=== PATIENT | male | born 1960 | race Caucasian/White ===

== ENCOUNTER → 2017-02-05 | Day surgery (SDC) | payer BC ==
[~2017-02-05] MED LIST: Ketamine 500 mg/10 ML MDV ONE; Lactated Ringers 1,000 ML IV SCH; Lidocaine 1% 4 ML ONE; Lidocaine 1%/Sod Bicarbonate in NS 8.4% 1 ML Syringe PRN; Propofol 200 MG/20 ML SDV ONE; Sodium Chloride 0.9% 10 ML Syringe FLUSH PRN
--- NOTE | 2017-02-05 07:38 | PCM.PREANE ---
Preanesthetic Assessment - Anesthesia/Transfusion/Family Hx Anesthesia History: Prior Anesthesia Without Reaction Family History of Anesthesia Reaction: No - Review of Systems General: No Symptoms Pulmonary: No Symptoms Cardiovascular: No Symptoms Gastrointestinal: Abdominal Pain, Nausea Neurological: No Symptoms Other: Reports: None - Physical Assessment NPO Status Date: 02/04/17 NPO Status Time: 23:00 Pulse: 89 O2 Sat by Pulse Oximetry: 94 Respiratory Rate: 16 Blood Pressure: 134/78 Temperature: 98.1 C Weight: 157 kg ASA Class: 3 Mental Status: Alert & Oriented x3 Dentition: Reports: Normal Dentition Thyro-Mental Finger Breadths: 2 Mouth Opening Finger Breadths: 3 ROM/Head Extension: Full Lungs: Clear to Auscultation, Normal Respiratory Effort Cardiovascular: Regular Rate, Regular Rhythm - Allergies Allergies/Adverse Reactions: Allergies Allergy/AdvReac Type Severity Reaction Status Date / Time Ylqynlq-Awj-Tka Reductase Allergy intolerance Verified 02/04/17 16:01 Inhibitor to - Acknowledgements Anesthesia Type Planned: MAC Pt an Appropriate Candidate for the Planned Anesthesia: Yes Alternatives and Risks of Anesthesia Discussed w Pt/Guardian: Yes Pt/Guardian Understands and Agrees with Anesthesia Plan: Yes Additional Comments: Patient saw PCP for increased weight gain as recommended by general surgery. Medications were adjusted. Weight returned to baseline. Per patient PCP recommended to proceed with procedure as planned. 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 Musculoskeletal History: Reports: Other (See Below) (Back Surgery in 1999, lower back) Neurological History: Reports: None Psychiatric History: Reports: None Endocrine/Metabolic History: Reports: Diabetes, Type II Hematologic History: Reports: None Immunologic History: Reports: None Oncologic (Cancer) History: Reports: None Dermatologic History: Reports: None - Past Surgical History Head Surgeries/Procedures: Reports: None GI Surgical History: Reports: Colonoscopy Musculoskeletal Surgical History: Reports: Other (See Below) Other Musculoskeletal Surgeries/Procedures:: back surgery - SUBSTANCE USE Smoking Status *Q: Never Smoker Days Per Week of Alcohol Use: 3 Number of Drinks Per Day: 2 Total Drinks Per Week: 6 - HOME MEDS Home Medications: Home Meds Allopurinol [Allopurinol] 150 mg PO DAILY 02/04/17 [History] Aspirin [[place] Aspirin] 81 mg PO BID 02/04/17 [History] Fexofenadine [Delma] 60 mg PO DAILY 02/04/17 [History] Glimepiride [Glimepiride] 2 mg PO DAILY 02/04/17 [History] Insulin Aspart [NovoLOG] 30 units SQ QPM 02/04/17 [History] Insulin Glargine,Hum.Rec.Anlog [[place] Solostar] 80 units SQ BEDTIME 02/04/17 [ History] Valsartan 320 mg PO DAILY 02/04/17 [History] sitaGLIPtin Phosphate [Januvia] 100 mg PO DAILY 02/04/17 [History] - CURRENT (IN HOUSE) MEDS Current Meds: Current Medications Lactated Ringer's (Ringers, Lactated) 1,000 mls @ 125 mls/hr IV ASDIRECTED GHASSAN Stop: 02/05/17 23:00 Lidocaine/Sodium Bicarbonate (Buffered Lidocaine 1% In Ns 8.4%) 0.25 ml .XX ONETIME PRN PRN Reason: Prior to IV Start Stop: 02/05/17 18:00 Sodium Chloride (Saline Flush) 10 ml FLUSH ASDIRECTED PRN PRN Reason: Keep Vein Open Stop: 02/05/17 18:00 Discontinued Medications Lidocaine HCl (Xylocaine-Mpf 1%) Confirm Administered Dose 4 mls @ as directed .ROUTE .STK-MED ONE Stop: 02/05/17 07:16 Propofol (Diprivan 20 Ml) Confirm Administered Dose 400 mg .ROUTE .STK-MED ONE Stop: 02/05/17 07:16
--- NOTE | 2017-02-05 08:49 | PCM.OPNOTE ---
- General Post-Op/Procedure Note Date of Surgery/Procedure: 02/05/17 Operative Procedure(s): egd with bx and colonoscopy with polypectomy Pre Op Diagnosis: nausea and screening colonoscopy Post-Op Diagnosis: Same Anesthesia Technique: MAC Primary Surgeon: Ari Hill EBL in mLs: 0 Complications: None Condition: Good
--- NOTE | 2017-02-05 08:55 | PCM48HPAN ---
Post Anesthesia Note - EVALUATION WITHIN 48HRS OF ANESTHETIC Vital Signs in Normal Range: Yes Patient Participated in Evaluation: Yes Respiratory Function Stable: Yes Airway Patent: Yes Cardiovascular Function Stable: Yes Hydration Status Stable: Yes Pain Control Satisfactory: Yes Nausea and Vomiting Control Satisfactory: Yes Mental Status Recovered: Yes
[2017-02-05 09:20] VITALS: BP 133/81
--- NOTE | 2017-02-05 10:26 | OR ---
DATE OF OPERATION: 02/05/2017 SURGEON: Ari Hill MD PREOPERATIVE DIAGNOSIS: Nausea. POSTOPERATIVE DIAGNOSIS: Nausea. OPERATION PERFORMED: Esophagogastroduodenoscopy with biopsy. ANESTHESIA: Under IV sedation. FINDINGS: Small sliding hiatal hernia. GE junction located at 42 cm. Some mild chronic esophagitis noted. The antrum showed redness and thickening of the mucosa suggesting gastritis. Biopsies were taken of this area. The second portion of the duodenum, duodenal bulb, pyloric channel, body, cardia, and fundus of the stomach were unremarkable, as was the balance of the esophagus. DESCRIPTION OF PROCEDURE: The patient was taken to the endoscopy room and placed in the supine position, connected to monitoring equipment, given IV sedation, and placed in left lateral position. Bite block was inserted. Video Olympus gastroscope placed in the posterior oropharynx, under direct vision, threaded past the cricopharyngeus, down the esophagus, and into the stomach. The stomach was insufflated. The scope passed through the pylorus to the second portion of the duodenum. It was slowly withdrawn showing the normal second portion of the duodenum, duodenal bulb, and pyloric channel. Antrum, however, was thickened red and showed edema consistent with gastritis, which could explain his nausea. Biopsies were taken. J-maneuver was performed. Fundus, body, and cardia of the stomach were reviewed. A small sliding hiatal hernia was noted. Scope was withdrawn to the GE junction, which showed some mild chronic esophagitis, and this was biopsied. The rest of the esophagus was viewed as the scope was withdrawn and was unremarkable. The patient tolerated the procedure. The specimen was sent to Pathology in a separate labeled container. The patient's IV sedation continued for colonoscopy. ESTIMATED BLOOD LOSS: MMODAL /[id number]
--- NOTE | 2017-02-05 12:03 | OR ---
DATE OF OPERATION: 02/05/2017 SURGEON: Ari Hill MD PREOPERATIVE DIAGNOSIS: Screening colonoscopy. POSTOPERATIVE DIAGNOSIS: Screening colonoscopy. OPERATION PERFORMED: Colonoscopy to cecum with removal of a diminutive polyp in the ascending colon by cold biopsy forceps. ANESTHESIA: Done under IV sedation. FINDINGS: Diminutive polyp in the ascending colon. There was no angiodysplasias, large tumor masses, ulcerations, diverticulum, or notable hemorrhoids. DESCRIPTION OF PROCEDURE: The patient having been connected to monitoring equipment and given IV sedation for upper GI endoscopy, this sedation was continued for a colonoscopy. He was placed in left lateral position. The perianal area was inspected and was normal. Rectal exam showed good sphincter tone. Video Olympus colonoscope was then introduced into the rectum and threaded up without problem to the cecum. Cecal anatomy was clearly seen showing the appendicular orifice, ileocecal valve. Prep was excellent. [place] cleansing score grade A. The scope was slowly withdrawn showing the cecum, ascending colon, transverse colon, descending colon, sigmoid colon, and rectum. A diminutive polyp in the ascending colon was noted, and this was removed by multiple bites of cold biopsy forceps and sent to pathology in a labeled container. The patient tolerated the procedure and was sent to recovery room in a stable condition. Specimen sent to Pathology in a labeled container, and the patient will be followed up in the clinic. ESTIMATED BLOOD LOSS: MMODAL /[id number]
== END | disposition home or self-care (01) ==
LOC: JD.SDS 07:02
PROVIDERS: ATTEND Surgery
PROC: 0DB48ZX Excision of Esophagogastric Junction, Via Natural or Artificial Opening Endoscopic, Diagnostic (ICD-10-PCS; principal; 2017-02-05)
PROC: 0DB68ZX Excision of Stomach, Via Natural or Artificial Opening Endoscopic, Diagnostic (ICD-10-PCS; 2017-02-05)
PROC: 0DBK8ZZ Excision of Ascending Colon, Via Natural or Artificial Opening Endoscopic (ICD-10-PCS; 2017-02-05)
DX: Z12.11 Encounter for screening for malignant neoplasm of colon (principal); D12.2 Benign neoplasm of ascending colon; K25.9 Gastric ulcer, unspecified as acute or chronic, without hemorrhage or perforation; K20.9 Esophagitis, unspecified; K44.9 Diaphragmatic hernia without obstruction or gangrene; I10 Essential (primary) hypertension; E11.9 Type 2 diabetes mellitus without complications; G47.30 Sleep apnea, unspecified; Z98.890 Other specified postprocedural states; Z79.4 Long term (current) use of insulin; Z79.82 Long term (current) use of aspirin; Z79.84 Long term (current) use of oral hypoglycemic drugs; Z79.899 Other long term (current) drug therapy; Z88.8 Allergy status to other drugs, medicaments and biological substances
CPT/HCPCS: 43239; 45380; 82962; J7120; 00810; J2704

== ENCOUNTER 2021-03-06 13:49 | Emergency (ER) | payer BC ==
[2021-03-06 14:15] VITALS: BP 121/77; PULSE 91
[2021-03-06] MEDS ORDERED: Sodium Chloride 0.9% 10 ML Syringe FLUSH PRN (14:46)
--- NOTE | 2021-03-06 15:07 | EDM.PDOC ---
ED HPI GENERAL MEDICAL PROBLEM - General Chief Complaint: Cardiovascular Problem Stated Complaint: IRREGULAR HEART BEAT HEADACHE DIZZY Time Seen by Provider: 03/06/21 14:45 Source of Information: Reports: Patient, RN Notes Reviewed History Limitations: Reports: No Limitations - History of Present Illness INITIAL COMMENTS - FREE TEXT/NARRATIVE: Patient is a 60-year-old male who presents to the ER for the evaluation of what he describes as heart palpitations, dizziness and a slight headache. Patient notes he has been having issues with this ongoing for about a month now, int ermittently. But he got associated dizziness/lightheadedness today, and became concerned. Patient believes he had COVID-19 back in April 2020, as he notes when he had his last well checkup with his provider, Dr. Santiago, his D-dimer was slightly elevated and he did have antibodies to COVID-19. Patient states he is also diabetic, and was changed to some different medications in June, but his blood sugars have been under control since then as well. Patient states he does have a slight headache, but no fevers or chills, cough or shortness of breath, no nausea/vomiting/diarrhea. Patient states that sometimes when he lays on his right side, he does have the feeling of his heart either pauses, or skips a beat, and then he notices some slight lightheadedness. Patient notes that he has been trying to lose weight, by diet and he has been down 12 or 13 pounds in the last few weeks as well. - Related Data Allergies Allergy/AdvReac Type Severity Reaction Status Date / Time Exmghtc-Nyl-Ywx Reductase Allergy intolerance Verified 03/06/21 14:16 Inhibitor to Home Meds: Home Meds Aspirin [[place] Aspirin] 81 mg PO BID 02/04/17 [History] Fexofenadine [Delma] 60 mg PO DAILY 02/04/17 [History] Glimepiride 2 mg PO DAILY 02/04/17 [History] Insulin Aspart [NovoLOG] 30 units SQ QPM 02/04/17 [History] Insulin Glargine,Hum.Rec.Anlog [Toumary louo Solostar] 80 units SQ BEDTIME 02/04/17 [History] Valsartan 320 mg PO DAILY 02/04/17 [History] allopurinoL [Allopurinol] 150 mg PO DAILY 02/04/17 [History] sitaGLIPtin Phosphate [Januvia] 100 mg PO DAILY 02/04/17 [History] Past Medical History HEENT History: Reports: Impaired Vision, Other (See Below) Other HEENT History: wears glasses Cardiovascular History: Reports: Hypertension Respiratory History: Reports: Sleep Apnea Gastrointestinal History: Reports: Hemorrhoids Musculoskeletal History: Reports: Other (See Below) (Back Surgery in 1999, lower back) Endocrine/Metabolic History: Reports: Diabetes, Type II, Obesity/BMI 30+ - Infectious Disease History Infectious Disease History: Reports: Novel Coronavirus (suspected Apr 2020-has antibodies to COVID) - Past Surgical History GI Surgical History: Reports: Colonoscopy Musculoskeletal Surgical History: Reports: Other (See Below) Other Musculoskeletal Surgeries/Procedures:: back surgery ED ROS GENERAL - Review of Systems Review Of Systems: Comprehensive ROS is negative, except as noted in HPI. ED EXAM, GENERAL - Physical Exam Exam: See Below Exam Limited By: No Limitations General Appearance: Alert, WD/WN, No Apparent Distress Respiratory/Chest: No Respiratory Distress, Lungs Clear, Normal Breath Sounds, No Accessory Muscle Use, Chest Non-Tender Cardiovascular: Normal Peripheral Pulses, Regular Rate, Rhythm, No Edema Extremities: Normal Inspection, Normal Capillary Refill Neurological: Alert, Oriented, Normal Cognition, No Motor/Sensory Deficits Psychiatric: Normal Affect, Normal Mood Skin Exam: Warm, Dry, Intact, Normal Color, No Rash #1 Interpretation EKG Date: 03/06/21 Time: 14:58 Rhythm: NSR Rate (Beats/Min): 91 [place]: Normal P-Wave: Present QRS: Normal ST-T: Normal QT: Normal Comparison: NA - No Prior EKG EKG Interpretation Comments: No obvious ischemia or acute ST changes noted, reviewed by myself and Dr. Díaz. Course - Vital Signs Last Recorded V/S: Last Vital Signs Temp 98.3 F 03/06/21 14:10 Pulse 91 03/06/21 14:10 Resp 18 03/06/21 14:10 BP 121/77 03/06/21 14:10 Pulse Ox 96 03/06/21 14:10 - Orders/Labs/Meds Orders: Active Orders 24 hr Category Date Time Status Peripheral IV Care [RC] . DIRECTED Care 03/06/21 14:46 Ordered Sodium Chloride 0.9% [Saline Flush] Med 03/06/21 14:46 Ordered 10 ml FLUSH ASDIRECTED PRN Peripheral IV Insertion Adult [OM.PC] Routine Oth 03/06/21 14:46 Ordered Medication Orders Sodium Chloride (Sodium Chloride 0.9% 10 Ml Syringe) 10 ml FLUSH ASDIRECTED PRN PRN Reason: Keep Vein Open Last Admin: 03/06/21 15:24 Dose: 10 ml Documented by: NOMI Labs: Laboratory Tests 03/06/21 03/06/21 Range/Units 15:17 15:17 WBC 7.80 (4.23-9.07) K/mm3 RBC 5.41 (4.63-6.08) M/mm3 Hgb 16.1 (13.7-17.5) gm/dl Hct 47.3 (40.1-51.0) % MCV 87.4 (79.0-92.2) fl MCH 29.8 (25.7-32.2) pg MCHC 34.0 (32.2-35.5) g/dl RDW Std Deviation 48.1 H (35.1-43.9) fL Plt Count 176 (163-337) K/mm3 MPV 9.8 (9.4-12.3) fl Neut % (Auto) 57.8 (34.0-67.9) % Lymph % (Auto) 31.7 (21.8-53.1) % [place] % (Auto) 7.9 (5.3-12.2) % Eos % (Auto) 1.9 (0.8-7.0) Baso % (Auto) 0.4 (0.1-1.2) % Neut # (Auto) 4.51 (1.78-5.38) K/mm3 Lymph # (Auto) 2.47 (1.32-3.57) K/mm3 [place] # (Auto) 0.62 (0.30-0.82) K/mm3 Eos # (Auto) 0.15 (0.04-0.54) K/mm3 Baso # (Auto) 0.03 (0.01-0.08) K/mm3 Sodium 139 (136-145) mEq/L Potassium 4.3 (3.5-5.1) mEq/L Chloride 103 (98-107) mEq/L Carbon Dioxide 26 (21-32) mEq/L Anion Gap 14.3 (5-15) BUN 19 H (7-18) mg/dL Creatinine 1.2 (0.7-1.3) mg/dL Est Cr Clr Drug Dosing TNP Estimated GFR (MDRD) > 60 (>60) mL/min BUN/Creatinine Ratio 15.8 (14-18) Glucose 138 H (70-99) mg/dL Calcium 9.1 (8.5-10.1) mg/dL Magnesium 1.9 (1.8-2.4) mg/dL Total Bilirubin 0.9 (0.2-1.0) mg/dL AST TNP ALT TNP Alkaline Phosphatase 83 (46-116) U/L Troponin I < 0.017 (0.00-0.056) ng/mL Total Protein TNP Albumin 3.5 (3.4-5.0) g/dl Globulin 3.4 gm/dL Albumin/Globulin Ratio 1.0 (1-2) Meds: Medications Generic Name Dose Route Start Last Admin Trade Name Freq PRN Reason Stop Dose Admin Sodium Chloride 10 ml 03/06/21 14:46 03/06/21 15:24 Sodium Chloride 0.9% 10 Ml Syringe FLUSH 10 ml ASDIRECTED PRN Administration Keep Vein Open - Re-Assessments/Exams Free Text/Narrative Re-Assessment/Exam: 03/06/21 15:06 Patient presents to the ER for evaluation of reported heart palpitations, dizziness and lightheadedness. Will go ahead and get EKG, take some basic labs for evaluation, likely the patient was sent home with a Holter monitor for ongoing cardiac management/evaluation. Does state that he has a appointment with Dr. Roberts, this coming Thursday has Dr. Santiago has been out of the area. 03/06/21 16:35 Laboratory evaluation demonstrates no focal abnormalities, EKG was also without acute ST change or abnormality. We will go ahead and get the patient discharged home with a Holter monitor and have him follow-up with Dr. Roberts on Thursday for ongoing management. Departure - Departure Time of Disposition: 16:52 Disposition: Home, Self-Care 01 Condition: Good Clinical Impression: Palpitations with regular cardiac rhythm, Episodic lightheadedness Instructions: Palpitations, [id number] Referrals: Bj Stacy MD [Primary Care Provider] - Alli Roberts MD [Physician] - Forms: ED Department Discharge Additional Instructions: You were evaluated in the ER today for the feelings of your heart palpitations. Laboratory evaluation, and EKG done at today's visit demonstrate no focal abnormalities. You are not suffering from a heart attack at today's visit. There are no metabolic abnormalities like electrolyte levels that are off, to be known to be the cause of your symptoms today. For ongoing management, we have sent you home with a 48-hour Holter monitor to monitor your cardiac rhythm for the next 48 hours. You will need to return this to our ER entrance and follow-up with your primary care provider for results of this. Highly likely, that it may take at least 1 week for results of this to be finalized. Please continue all other medications as previously prescribed by your regular provider. Do not hesitate to return to the ER at any time if your symptoms should change or worsen. Sepsis Event Note (ED) - Focused Exam Vital Signs: Vital Signs Temp Pulse Resp BP Pulse Ox 03/06/21 14:10 98.3 F 91 18 121/77 96 - My Orders Last 24 Hours: My Active Orders 03/06/21 14:46 Peripheral IV Care [RC] . DIRECTED Sodium Chloride 0.9% [Saline Flush] 10 ml FLUSH ASDIRECTED PRN Peripheral IV Insertion Adult [OM.PC] Routine - Assessment/Plan Last 24 Hours: My Active Orders 03/06/21 14:46 Peripheral IV Care [RC] . DIRECTED Sodium Chloride 0.9% [Saline Flush] 10 ml FLUSH ASDIRECTED PRN Peripheral IV Insertion Adult [OM.PC] Routine
== END 2021-03-06 17:11 | disposition home or self-care (01) ==
LOC: JD.ED 13:49
DX: R00.2 Palpitations (principal); R42 Dizziness and giddiness; I10 Essential (primary) hypertension; E11.9 Type 2 diabetes mellitus without complications; E66.9 Obesity, unspecified; Z68.30 Body mass index [BMI] 30.0-30.9, adult; Z88.8 Allergy status to other drugs, medicaments and biological substances; Z79.82 Long term (current) use of aspirin; Z79.899 Other long term (current) drug therapy; Z79.4 Long term (current) use of insulin
CPT/HCPCS: 36415; 80053; 83735; 84484; 85025; 93005; 93010; 93225; 93226; 99283; 99285-25